=== PATIENT | male | born 1965 | race Caucasian/White ===

== ENCOUNTER 2017-04-20 10:09 | Emergency (ER) | payer BC ==
[~2017-04-20] VITALS: Ht 182.9 cm; Wt 95.0 kg
[2017-04-20] MEDS ORDERED: HYDROcodone/APAP 5/325 TABLET ONE (10:52)
[2017-04-20] MEDS ORDERED: HYDROcodone/APAP 5/325 TABLET PO ONE (11:00)
== END 2017-04-20 11:29 | disposition home or self-care (01) ==
LOC: EDBD 10:09 → MERGE 11:24 → ED 11:24
DX: S43.422A Sprain of left rotator cuff capsule, initial encounter (principal); W01.0XXA Fall on same level from slipping, tripping and stumbling without subsequent striking against object, initial encounter; Y93.E1 Activity, personal bathing and showering; Y92.002 Bathroom of unspecified non-institutional (private) residence as the place of occurrence of the external cause; Y99.8 Other external cause status
CPT/HCPCS: 93005; 99284